=== PATIENT | female | born 1985 | race Caucasian/White ===

== ENCOUNTER 2021-02-24 05:31 | Day surgery (SDC) | payer OTHER ==
[~2021-02-24] VITALS: Ht 162.6 cm; Wt 61.6 kg
--- NOTE | 2021-02-24 05:45 | NUR ---
35 year old patient admitted to bay #8 using a steady gait, no assistive devices used. is present. Consent reviewed and signed. Patient verbalized understanding of procedure. HCG refusal signed and patient verbalized understanding of the risk involved if the patient is pregant. Assessment completed, SEE PHYSICAL ASSESSMENT. IV started in R hand with #20 and LR is infusing without difficulty. PO medications administered. Warm blanket provided. Non-slip socks are on. Call coles is at bedside. Side railsx2.
[2021-02-24] MEDS ORDERED: ZYRTEC 10MG10 MG PO (06:00)
[2021-02-24] MEDS ORDERED: 00186-0370-20 IH (06:00)
[2021-02-24] MEDS ORDERED: CYMBALTA 20MG20 MG PO (06:01)
[2021-02-24] MEDS ORDERED: ULTRAM 50MG TAB50 MG PO (06:01)
[2021-02-24] MEDS ORDERED: VENTOLIN0.09 MG IH (06:02)
[2021-02-24] MEDS ORDERED: TYLENOL 500MG500 MG PO (06:02)
[2021-02-24 06:17] VITALS: BP 108/71; PULSE 57; TEMP 97.6
--- NOTE | 2021-02-24 07:00 | NUR ---
PATIENT TAKEN BACK TO THE OR
[2021-02-24 09:25] VITALS: BP 104/59; PULSE 57; TEMP 98
--- NOTE | 2021-02-24 09:25 | NUR ---
Patient arrived on cart from PACU by GINA Jerome. Report obtained on phone from GINA Albert. Patient is alert and oriented. Vitals obtained. Patient rates her pain at 6/10. She requested plain wheat toast and ice water. is present. Will continue to monitor per intervals. Side rails x2. Call coles is on right side bed table.
[2021-02-24 09:40] VITALS: BP 110/65; PULSE 81
--- NOTE | 2021-02-24 09:40 | NUR ---
Vitals obtained. Patient is tolerating her ice water and wheat toast well. Denies N/V. Will continue to monitor per prescribed intervals.
--- NOTE | 2021-02-24 09:45 | NUR ---
Percocet administered
[2021-02-24 09:55] VITALS: BP 108/71; PULSE 79
--- NOTE | 2021-02-24 09:55 | NUR ---
Patient was assisted ambulating to bathoom by GINA Jerome. Patient was able to void successfully. Her stayed in the bathroom per her request. Patient then ambulated back to her room. RN removed her IV at this time due to impending discharge. Catheter tip intact. Pressure dressing applied. Patient denied needing assistance changing because her is present. No redness or swelling noted on IV DC site.
--- NOTE | 2021-02-24 10:10 | NUR ---
Discharge instructions reviewed, educational material reviewed including the additional packet from the DR. Patient and her verbalized understanding of material. Patient was sent home with an additional sling that she is currently wearing. Her R arm is still wrapped in the raffy bandage. Patient signed the related paperwork with her non-dominate L hand.
--- NOTE | 2021-02-24 10:30 | NUR ---
Patient was escorted out via wheelchair by GINA Jerome and her . Her has the patient discharge packet in hand along with the personal belongings of the patient. Patient was transferred into his care at this time. is present to drive.
[2021-02-24 10:56] VITALS: BP 100/58; PULSE 60
== END 2021-02-24 10:35 | disposition home or self-care (01) ==
LOC: SDCO 05:31
DX: G56.21 Lesion of ulnar nerve, right upper limb (principal); J45.30 Mild persistent asthma, uncomplicated; Z79.899 Other long term (current) drug therapy; Z80.9 Family history of malignant neoplasm, unspecified
CPT/HCPCS: J0690; J1100; J1885; J2405; J2704; J3010; J7120